=== PATIENT | female | born 1985 | race African-American/Black ===

== ENCOUNTER 2016-05-30 10:01 | Emergency (ER) | payer SELFPAY ==
[~2016-05-30] VITALS: Ht 175.3 cm; Wt 132.0 kg
[2016-05-30 10:03] VITALS: BP 152/67; PULSE 86; RESP 20; TEMP 98.7; O2SAT 100
[2016-05-30] MEDS ORDERED: METR-1 PO (11:08)
[2016-05-30] MEDS ORDERED: DOXY100C PO (11:08)
[2016-05-30] MEDS ORDERED: IBUP800T23 PO (11:09)
--- NOTE | 2016-05-30 11:09 | PD ---
HPI . Pelvic pain Chief Complaint: Abdominal Pain Time Seen by Provider: 10:21 Travel History International Travel<30 days: No Contact w/Intl Traveler<30days: No Traveled to known affect area: No History of Present Illness HPI Patient presents with a three-day history of pelvic pain. She states that her urine is cloudy and malodorous. She also has a vaginal discharge. She denies dyspareunia. Last normal menstrual period was April the area In addition, she states that she has a pruritic rash to both forearms. She said that for a couple of weeks. She does not know the etiology of the rash. She has not been treating the rash at home in any way. [id number]: Pelvic QUALITY: Cramping DURATION: 3 days TIMING: Continuous CONTEXT: Associated with a vaginal discharge and malodorous urine MODIFYING FACTORS: No noted exacerbating or relieving factors PFSH Past Medical History Medical History: Denies Significant Hx Diminished Hearing: No Tetanus Vaccination: Unknown Influenza Vaccination: Yes ?: Not LMP: 05/04/2016 Menopausal: No : 3 Para: 3 Miscarriage: 0 : 0 Tubal Ligation: Yes Past Surgical History Section: Yes Social History Alcohol Use: No Tobacco Use: No Substance Use: No Allergies-Medications (Allergen,Severity, Reaction): Coded Allergies: No Known Allergies (Unverified , 05/30/16) Reported Meds & Prescriptions Reported Meds & Active Scripts Active Ibuprofen 800 Mg Tab 800 Mg PO Q8H PRN Flagyl (Metronidazole) 500 Mg Tab 500 Mg PO TWICE A DAY 7 Days Doxycycline Hyclate 100 Mg Cap 100 Mg PO BID Review of Systems Except as stated in HPI: all other systems reviewed are Neg General / Constitutional: No: Fever, Chills Respiratory: No: Cough, Shortness of Breath Gastrointestinal: No: Nausea, Vomiting, Diarrhea Genitourinary: Positive: Pelvic Pain, Discharge, Other (foul odor when she urinates), No: Urgency, Frequency, Dysuria Skin: Positive Rash, Positive Itching Physical Exam Narrative GENERAL: Awake and alert and in no acute distress. SKIN: Warm and dry. Maculopapular rash on the volar aspect of both forearms. HEAD: Atraumatic. Normocephalic. EYES: Pupils equal and round. Extraocular movements are intact. ENT: No nasal bleeding or discharge. Mucous membranes pink and moist. NECK: Trachea midline. Neck is supple. CARDIOVASCULAR: Regular rate and rhythm. RESPIRATORY: No accessory muscle use. GASTROINTESTINAL: Abdomen soft, non-tender, nondistended. : Yellow, thick discharge in the vaginal vault. I was unable to reach her cervix with my fingers so I cannot comment on cervical motion tenderness. She does seem to have bilateral adnexal tenderness. MUSCULOSKELETAL: No obvious deformities. No edema. NEUROLOGICAL: Awake and alert. No obvious cranial nerve deficits. Motor grossly within normal limits. Normal speech. PSYCHIATRIC: Appropriate mood and affect; insight and judgment normal. Data Data Last Documented VS Vital Signs Date Time Temp Pulse Resp B/P Pulse Ox O2 Delivery O2 Flow Rate FiO2 05/30/16 10:39 18 05/30/16 10:03 98.7 86 152/67 100 Room Air Orders Gc And Chlamydia Pcr (05/30/16 10:21) Wet Prep Profile (05/30/16 10:21) Urinalysis - C+S If Indicated (05/30/16 10:21) Ed Urine Pregnancytest Poc (05/30/16 10:21) Ceftriaxone Inj (Rocephin Inj) (05/30/16 11:15) Lidocaine 1% Inj (50 Ml) (Xylocaine 1% I (05/30/16 11:15) MDM Medical Decision Making Medical Screen Exam Complete: Yes Emergency Medical Condition: Yes Differential Diagnosis Differential diagnosis of pelvic pain includes but is not limited to UTI, PID, ectopic , spontaneous AB, constipation, viral illness Narrative Course Patient presents with a 3 day history of pelvic pain. She has PID on exam. She also has a depressed both forearms. I have told her to take Benadryl for the itching and use hydrocortisone on the rash. Diagnosis Primary Impression: PID (acute pelvic inflammatory disease) Additional Impression: Rash Patient Instructions: Acute Rash (DC), General Instructions, Pelvic Inflammatory Disease (DC) Additional Instructions: Use hydrocortisone cream on your rash. Take Benadryl, 2 every 4 hours as needed for itching. Avoid heat. Cool compresses will probably help. Med/Other Pt SpecificInfo: Prescription(s) given Scripts Ibuprofen 800 Mg [id number] Mg PO Q8H PRN (pain) #30 TAB Ref 0 Prov:Nydia Lombardi MD 05/30/16 Metronidazole (Flagyl)500 Mg [id number] Mg PO twice a day 7 Days Ref 0 Prov:Nydia Lombardi MD 05/30/16 Doxycycline Hyclate 100 Mg [id number] Mg PO BID #20 CAP Ref 0 Prov:Nydia Lombardi MD 05/30/16 Disposition: 01 DISCHARGE HOME Condition: Stable Nydia Lombardi MD May 30, 2016 11:09
[2016-05-30] MEDS ORDERED: LIDOCAINE HCL 1% 50 ML VIAL XX ONE (11:15)
[2016-05-30] MEDS ORDERED: cefTRIAXone 250 MG VIAL IM ONE (11:15)
[2016-05-30 11:21] LABS: BACTERIA, URINE OCC /hpf; BLOOD, URINE NEG (NEG); COMMENT (UR) CULT NOT INDICATED; CULTURE IF INDICATED CULT NOT INDICATED; GLUCOSE,URINE NEG (NEG); KETONE, URINE NEG (NEG); MUCUS URINE FEW /lpf (OCC); NITRITE,URINE POS (NEG); SQUAMOUS EPITHELIAL CELL URINE 1 /hpf (0-5); URINE COLOR YELLOW (YELLW/STRAW)
[2016-05-30 13:58] LABS: CHLAMYDIA PCR NOT DETECTED (NOT DETECT); NEISSERIA PCR NOT DETECTED (NOT DETECT)
== END 2016-05-30 12:46 | disposition home or self-care (01) ==
LOC: NEPC 10:01
DX: N73.0 Acute parametritis and pelvic cellulitis (principal); R21 Rash and other nonspecific skin eruption
CPT/HCPCS: 81001; 84703; 87210; 87491; 87591; 96372; 99283; J0696